=== PATIENT | male | born 1955 | race Caucasian/White ===

== ENCOUNTER 2018-11-16 19:39 | Emergency (ER) | payer OTHER ==
[2018-11-16 19:46] VITALS: BP 133/73; PULSE 82; TEMP 98.3; BMI 20.3
--- NOTE | 2018-11-16 19:49 | PDOC ---
Rapid Medical Evaluation Time Seen by Provider: 11/16/18 19:39 Medical Evaluation: Vital Signs Temp Pulse Resp BP Pulse Ox 98.3 F 82 18 133/73 96 11/16/18 19:44 11/16/18 19:44 11/16/18 19:44 11/16/18 19:44 11/16/18 19:44 11/16/18 19:45 I have performed a brief in-person evaluation of this patient. The patient presents with a chief complaint of:R foot foot got ran over by fork lift at work today Pertinent physical exam findings: Will defer exam to FT provider I have ordered the following:XR The patient will proceed to the ED for further evaluation. Discharge Disposition - Diagnosis Foot injury Qualifiers: Encounter type: initial encounter Laterality: right Qualified Code(s): S99.921A - Unspecified injury of right foot, initial encounter - Referrals - Patient Instructions - Post Discharge Activity
[2018-11-16] MEDS ORDERED: IBUPROFEN 400 MG TABLET (FP) PO ONE ×2 (21:06→21:18)
--- NOTE | 2018-11-16 22:13 | PDOC ---
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) Past History - Past Medical History Allergies/Adverse Reactions: Allergies Allergy/AdvReac Type Severity Reaction Status Date / Time No Known Allergies Allergy Verified 11/16/18 19:46 Home Medications: Ambulatory Orders NK [No Known Home Medication] 11/16/18 COPD: No - Suicide/Smoking/Psychosocial Hx Smoking History: Never smoked *Physical Exam - Vital Signs Last Vital Signs Temp Pulse Resp BP Pulse Ox 98.3 F 82 18 133/73 96 11/16/18 19:44 11/16/18 19:44 11/16/18 19:44 11/16/18 19:44 11/16/18 19:44 - Physical Exam Comments: Swelling al marlys R medial malleolus with TTP, no deformity of ankle noted, R foot unremarkable, no evidence of trauma above R ankle. RLE neurovascularly intact 11/16/18 22:09 General Appearance: No: Apparent Distress Procedures - Splinting Splint Location: Right: Ankle Pre-Proc Neuro Vasc Exam: normal Hand-Made Type: orthoglass Splint Type: Yes: Short Leg Post-Proc Neuro Vasc Exam: normal [place] Bandage: yes Complications: No ED Treatment Course - RADIOLOGY Radiology Studies Ordered: Category Date Time Status ANKLE & FOOT-RIGHT* [RAD] Stat Radiology 11/16/18 21:06 Taken - Medications Given in the ED: ED Medications Discontinued Medications Generic Name Dose Route Start Last Admin Trade Name Freq PRN Reason Stop Dose Admin Ibuprofen 800 mg 11/16/18 21:06 11/16/18 21:19 Motrin - PO 11/16/18 21:07 800 mg ONCE ONE Administration Medical Decision Making - Medical Decision Making 62 y/o M with no sig pmh presents with R ankle injury from 6:30 PM today. 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 Denies other injuries Xray shows isolated R medial malleolar fracture, nondisplaced RLE placed in splint, given crutches and post-op shoe Pain improved to 0/10 after taking Motrin Will refer to ortho 06/21/19 22:11 *DC/Admit/Observation/Transfer Diagnosis at time of Disposition: Fracture of medial malleolus, right, closed Qualifiers: Encounter type: initial encounter Fracture alignment: nondisplaced Qualified Code(s): S82.54XA - Nondisplaced fracture of medial malleolus of right tibia, initial encounter for closed fracture - Discharge Dispostion Disposition: HOME Condition at time of disposition: Stable Decision to Admit order: No - Referrals Referrals: Erich Tony DO [Staff Physician] - 2 Days - Patient Instructions Printed Discharge Instructions: DI for Ankle Fracture Additional Instructions: Thank you for choosing [facility]. It was a pleasure taking care of you. You may take Motrin 600 mg every 6 hours by mouth as needed for mild to moderate pain. Take Motrin with food. Please do not put weight on your foot Keep the splint dry Follow-up with orthopedics in 2-3 days Return to the Emergency Department if your symptoms worsen or persist or have other concerning symptoms. Radha por elegir el [facility]. Fue un placer cuidar de ti. Puede eden Motrin 600 mg cada 6 horas por va oral segn sea necesario para el dolor leve a moderado. [place] Motrin con la comida. Por favor, no ponga peso en celestin pie Mantener la frula seca Seguimiento con ortopedia en 2-3 amador. Regrese al Departamento de Emergencias si kizzy sntomas empeoran o persisten o si tiene otros sntomas relacionados. Print Language: SAMMARINESE - Post Discharge Activity
== END 2018-11-16 22:24 | disposition home or self-care (01) ==
LOC: JERFT 19:39
PROC: 2W3QX1Z Immobilization of Right Lower Leg using Splint (ICD-10-PCS; principal; 2018-11-16)
DX: S82.54XA Nondisplaced fracture of medial malleolus of right tibia, initial encounter for closed fracture (principal); W24.0XXA Contact with lifting devices, not elsewhere classified, initial encounter; Y93.89 Activity, other specified; Y92.63 Factory as the place of occurrence of the external cause; Y99.0 Civilian activity done for income or pay
CPT/HCPCS: 73610-TC-RT-FY; 73630-TC-RT-FY; 99281-25